=== PATIENT | male | born 1965 | race American Indian/Alaskan Native ===

== ENCOUNTER 2018-12-14 10:02 | Outpatient (CLI) | payer MEDICARE ==
[2018-12-14] MEDS ORDERED: XYLOCAINE TOPICAL 4% TP ONE (10:26)
== END 2018-12-14 10:03 | disposition home or self-care (01) ==
LOC: WOUND 10:02
PROVIDERS: ATTEND Surgery
DX: I87.311 Chronic venous hypertension (idiopathic) with ulcer of right lower extremity (principal); L97.812 Non-pressure chronic ulcer of other part of right lower leg with fat layer exposed
CPT/HCPCS: 11042; G0463

== ENCOUNTER 2018-12-21 10:12 | Outpatient (CLI) | payer MEDICARE | END 2018-12-21 10:13 | disposition home or self-care (01) | LOC: WOUND 10:12 | PROVIDERS: ATTEND Surgery | DX: I87.311 Chronic venous hypertension (idiopathic) with ulcer of right lower extremity (principal); L97.812 Non-pressure chronic ulcer of other part of right lower leg with fat layer exposed; L02.416 Cutaneous abscess of left lower limb ==

== ENCOUNTER 2018-12-28 10:28 | Outpatient (CLI) | payer MEDICARE | END 2018-12-28 10:29 | disposition home or self-care (01) | LOC: WOUND 10:28 | PROVIDERS: ATTEND Surgery | DX: I87.311 Chronic venous hypertension (idiopathic) with ulcer of right lower extremity (principal); L97.811 Non-pressure chronic ulcer of other part of right lower leg limited to breakdown of skin; L02.416 Cutaneous abscess of left lower limb ==

== ENCOUNTER 2019-01-11 10:22 | Outpatient (CLI) | payer MEDICARE ==
[2019-01-11] MEDS ORDERED: XYLOCAINE TOPICAL 4% TP ONE (10:30)
[2019-01-11] MEDS ORDERED: SILVER NITRATE TP ONE (10:30)
== END 2019-01-11 10:23 | disposition home or self-care (01) ==
LOC: WOUND 10:22
PROVIDERS: ATTEND Surgery
DX: I87.311 Chronic venous hypertension (idiopathic) with ulcer of right lower extremity (principal); L97.812 Non-pressure chronic ulcer of other part of right lower leg with fat layer exposed; I87.2 Venous insufficiency (chronic) (peripheral)
CPT/HCPCS: 82962

== ENCOUNTER 2019-02-01 10:18 | Outpatient (CLI) | payer MEDICARE | END 2019-02-01 10:19 | disposition home or self-care (01) | LOC: WOUND 10:18 | PROVIDERS: ATTEND Surgery | DX: I87.311 Chronic venous hypertension (idiopathic) with ulcer of right lower extremity (principal); L97.812 Non-pressure chronic ulcer of other part of right lower leg with fat layer exposed ==

== ENCOUNTER 2019-03-15 10:31 | Outpatient (CLI) | payer MEDICARE ==
[2019-03-15] MEDS ORDERED: XYLOCAINE TOPICAL 4% TP ONE (11:44)
[2019-03-15] MEDS ORDERED: SILVER NITRATE TP ONE (11:45)
== END 2019-03-15 10:32 | disposition home or self-care (01) ==
LOC: WOUND 10:31
PROVIDERS: ATTEND Surgery
DX: I87.311 Chronic venous hypertension (idiopathic) with ulcer of right lower extremity (principal); L97.812 Non-pressure chronic ulcer of other part of right lower leg with fat layer exposed